=== PATIENT | female | born 1995 | race Caucasian/White ===

== ENCOUNTER 2022-01-23 20:00 | Emergency (ER) | payer OTHER ==
[2022-01-23 20:08] VITALS: BP 112/67; PULSE 78; TEMP 97; BMI 21.2
== END 2022-01-23 22:10 | disposition left against medical advice (07) ==
LOC: JERFT 20:00 → JER 20:00
DX: T14.90XA Injury, unspecified, initial encounter (principal)
CPT/HCPCS: 99283-25

== ENCOUNTER 2022-04-10 12:04 | Emergency (ER) | payer OTHER ==
[2022-04-10 12:18] VITALS: BP 113/76; PULSE 88; RESP 20; TEMP 98.1; BMI 23.5
[2022-04-10] MEDS ORDERED: ACETAMINOPHEN 500 MG TABLET (FP) PO ONE (12:46)
[2022-04-10] MEDS ORDERED: IBUPROFEN 600 MG TABLET (FP) PO ONE ×2 (12:46→12:47)
[2022-04-10] MEDS ORDERED: ACETAMINOPHEN 500 MG TABLET (FP) ONE (12:47)
== END 2022-04-10 13:43 | disposition home or self-care (01) ==
LOC: JERFT 12:04
DX: S42.425A Nondisplaced comminuted supracondylar fracture without intercondylar fracture of left humerus, initial encounter for closed fracture (principal); V00.841A Fall from standing electric scooter, initial encounter
CPT/HCPCS: 73630-TC-LT; 99283-25